=== PATIENT | male | born 1955 | race Caucasian/White ===

== ENCOUNTER 2023-07-18 07:51 | Day surgery (SDC) | payer MEDICARE, BC ==
[2023-07-18] VITALS (9 sets, daily range): BP systolic 95–118; BP diastolic 62–91; PULSE 65–73; TEMP 97.8
[~2023-07-18] VITALS: Ht 180.3 cm; Wt 106.1 kg
[2023-07-18] MEDS ORDERED: PROSCAR 5MG5 MG PO (08:15)
[2023-07-18] MEDS ORDERED: LIPITOR20 MG PO (08:15)
[2023-07-18] MEDS ORDERED: FLOMAX 0.40.4 MG/CAP PO (08:15)
[2023-07-18] MEDS ORDERED: 1/2 NS 1,000 ML IV SCH ×2 (08:15→13:45)
[2023-07-18] MEDS ORDERED: CRANBERRY500 M3 PO (08:16)
[2023-07-18] MEDS ORDERED: VITAMIN C500 MG PO (08:16)
[2023-07-18] MEDS ORDERED: MASON NATURAL2000 IU PO (08:16)
[2023-07-18] MEDS ORDERED: CLARITIN 1010 MG/TAB PO (08:16)
[2023-07-18] MEDS ORDERED: NAPROXEN 3375 MG/TAB PO (08:17)
[2023-07-18] MEDS ORDERED: MOTRIN 400400 MG/TAB PO (08:17)
[2023-07-18] MEDS ORDERED: ZESTRIL 20MG TA20 MG PO (08:17)
[2023-07-18] MEDS ORDERED: ASPIRIN E.C. 8181 MG PO (08:18)
[2023-07-18 08:49] LABS: HEMOGLOBIN 16.1 g/dl (13.5-18.0); MEAN CELL VOLUME 91 fl (80.0-100.0); MEAN CORPUSCULAR HEMOGLOBIN 30 pg (27-31); MEAN CORPUSCULAR HGB CONC 33 g/dl (33.0-37.0); PLATELET COUNT 190 K/mm3 (130-400); REDCELL DISTRIBUTION WIDTH-CV 13.5 % (11.5-14.5)
[2023-07-18 08:54] LABS: CALCIUM 9.6 mg/dL (8.4-10.2); CREATININE, serum 0.8 mg/dL (0.72-1.25); POTASSIUM 4.3 mmol/L (3.5-4.5)
[2023-07-18] MEDS ORDERED: COREG 6.256.25 MG/TA PO (09:04)
[2023-07-18 09:29] LABS: INR 0.9 (0.8-3.0); PROTHROMBIN TIME 9.9 SECONDS (9.7-12.8)
[2023-07-18 09:31] LABS: PARTIAL THROMBOPLASTIN TIME 31.9 SECONDS (26.0-37.0)
--- NOTE | 2023-07-18 12:26 | NUR ---
Please see merge documentation for record of interventions, vitals, and medications administered during complete heart cath.
[2023-07-18] MEDS ORDERED: fentaNYL 50 MCG/ML 2 ML VIAL IV SCH (12:31)
[2023-07-18 12:47] LABS: ARTERIAL BLOOD GAS HCO3 26.5 meq/L (22-26); ARTERIAL BLOOD GAS PCO2 49.3 mmHg (35-45); ARTERIAL BLOOD GAS PO2 65.7 mmHg (80-100); ARTERIAL BLOOD GAS pH 7.35 (7.35-7.45)
[2023-07-18 12:48] LABS: ARTERIAL BLOOD GAS BASE EXCESS 0.2 (-2-2)
[2023-07-18] MEDS ORDERED: Midazolam 2 MG/2 ML VIAL IV SCH (12:48)
[2023-07-18] MEDS ORDERED: Nitroglycerin 100 MCG/ML (Cath Lab) 10 ML VIAL IA SCH (12:49)
[2023-07-18] MEDS ORDERED: Heparin 1,000 UNITS/ML 10 ML Multi-Dose VIAL IA SCH (12:49)
[2023-07-18] MEDS ORDERED: Heparin 1,000 UNITS/ML 10 ML Multi-Dose VIAL IV SCH (12:57)
[2023-07-18] MEDS ORDERED: Verapamil 2.5 MG/ML 2 ML VIAL IA SCH (13:06)
[2023-07-18] MEDS ORDERED: Iohexol 350 - 100 ML VIAL INCOR ONE (13:30)
--- NOTE | 2023-07-18 15:34 | NUR ---
Air was removed from TR band in 2 ml increments with no bleeding or complication. Rt radial puncture site dressed with folded 2x2 and bandaid. Rt groin venous access site remains soft to palpation. Air was removed from Safegard device with 20ml initially removed, and final 20 mls removed 5 mins later. New sterile dressing was applied with folded 4x4 and tegaderm. Site remains clean, dry and intact after bedrest period was completed and pt was up in room and dressed. Pt is steady on feet in room. He ate meal with no c/o N/V. IV DC'd, site wrapped with coban. Pt is assisted out to 's car with belongings. Pt and both expressed understanding after DC instructions reviewed with them.
== END 2023-07-18 15:34 | disposition home or self-care (01) ==
LOC: COL.CAR 07:51
PROVIDERS: Internal Medicine Cardiovascular Disease
DX: I42.8 Other cardiomyopathies (principal); I27.20 Pulmonary hypertension, unspecified; I10 Essential (primary) hypertension; E78.2 Mixed hyperlipidemia; F17.210 Nicotine dependence, cigarettes, uncomplicated
CPT/HCPCS: J1644; J2250; J3010; Q9967